=== PATIENT | male | born 1970 | race Caucasian/White ===

== ENCOUNTER → 2018-04-13 12:32 | Outpatient (CLI) | payer BC, SELFPAY ==
--- NOTE | 2018-04-13 | DI.CT.S_ITS ---
PROCEDURE: CT KIDNEY URETER BLADDER (KUB) INDICATIONS: KIDNEY STONES TECHNIQUE: Noncontrast 5 mm thick sections acquired from the diaphragms to the symphysis. 5 mm thick coronal and sagittal reformats were then performed. For radiation dose reduction, the following was used: automated exposure control, adjustment of mA and/or kV according to patient size. COMPARISON: None. FINDINGS: Image quality: Excellent. Lung bases: Lung bases are clear. Heart size is normal. Urinary system: Both kidneys are normal in size. No kidney stones on the right but there is a left-sided 4 by 8mm calculus measuring up to 390 Hounsfield units centrally. No right-sided hydronephrosis or perinephric fat stranding but there is moderate hydronephrosis on the left with prominence of the left renal collecting system contiguously extending into the left ureter, to the bladder level, but without calculus at the bladder margin. Both ureters appear non-dilated throughout their expected courses. Bladder wall thickness is normal; no calcified bladder stones. Other solid organs: Liver is normal in size. Gallbladder appears normal where well visualized but it is largely contracted. Pancreas is normal in contours. Spleen is normal in size. No adrenal nodules. Peritoneum and bowel: Unenhanced bowel loops demonstrate normal wall thickness and caliber. No free fluid or air. Nodes and vessels: No retroperitoneal or mesenteric adenopathy by size criteria. Aorta and inferior vena cava are normal in caliber. Abdominal wall: No ventral hernias. Pelvis: No free pelvic fluid. No inguinal hernias or adenopathy. Bones: No suspicious bony lesions. No vertebral body compression fractures. IMPRESSION: Moderate left hydronephrosis, and no ureteral stone found. The hydroureter is associated with a mild degree of left perinephric and periureteral edema. This indicates likelihood of recent passage of a stone but a calculus within the bladder lumen is not seen. There is a 4 by 8mm 390 Hounsfield units calculus within the central renal collecting system on the left but not the cause of obstruction. Dictated by: Luther Dillon M.D. on 04/13/2018 at 13:34 Approved by: Luther Dillon M.D. on 04/13/2018 at 13:38
== END ==
PROVIDERS: Visit Provider Internal Medicine
DX: N20.0 Calculus of kidney (principal); N13.30 Unspecified hydronephrosis
CPT/HCPCS: 74176

== ENCOUNTER 2018-06-04 11:10 | Emergency (ER) | payer BC, SELFPAY ==
[2018-06-04] VITALS (10 sets, daily range): BP systolic 105–125; BP diastolic 63–83; PULSE 88–104; RESP 8–19; TEMP 36.2; O2SAT 96–100
--- NOTE | 2018-06-04 11:27 | DI.RAD.S_ITS ---
PROCEDURE: XR CHEST 1V INDICATIONS: chest pain TECHNIQUE: One view of the chest was acquired. COMPARISON: None. FINDINGS: Surgical changes and devices: None. Lungs and pleura: There are minimal left basilar hazy and linear opacities. No pleural effusions or pneumothorax. Mediastinum: Mediastinal contours appear normal. Heart size is normal. Bones and chest wall: No suspicious bony lesions. Overlying soft tissues appear unremarkable. IMPRESSION: Minimal left basilar pulmonary opacities favored to represent atelectasis, with aspiration or pneumonia thought less likely. Dictated by: Codey Gaspar M.D. on 06/04/2018 at 13:16 Approved by: Codey Gaspar M.D. on 06/04/2018 at 13:18
[2018-06-04 11:52] LABS: Add Manual Diff / Slide Review NO; Basophils Absolute Auto 0 /uL (0-100); Basophils Percent Auto 0.3 % (0-2); Eosinophils Absolute Auto 200 /uL (0-450); Eosinophils Percent Auto 1.7 % (2-4); Hematocrit 44.2 % (41-53); Hemoglobin 14.8 g/dL (13.5-17.5); Lymphocytes Absolute Auto 3500 /uL (1100-4500); Lymphocytes Percent Auto 37.1 % (25-40); Mean Corpuscular HGB Conc 33.6 % (30-36); Mean Corpuscular Hemoglobin 30.9 PG (26-34); Mean Corpuscular Volume 91.9 fL (80-100); Monocytes Absolute Auto 700 /uL (0-900); Neutrophils Absolute Auto 5100 /uL (1500-7000); Neutrophils Percent Auto 53.9 % (50-75); Platelet Count 174 X10^3/uL (150-400); Red Blood Cell Count 4.81 X10^6/uL (4.5-5.9); White Blood Cell Count 9.5 X10^3/uL (4.5-11.0)
[2018-06-04 11:57] LABS: Prothrombin Time 11.6 SECONDS (10.1-12.7)
[2018-06-04 11:59] LABS: PTT Partial Thromboplastin Tim 28 SECONDS (26.4-36.2)
[2018-06-04 12:00] LABS: Alanine Aminotransferase 91 IU/L (21-72); Albumin 4.4 g/dL (3.5-5.0); Albumin Globulin Ratio 1.3 (1.0-2.8); Alkaline Phosphatase 73 U/L (38-126); Aspartate Aminotransferase 48 IU/L (17-59); Bilirubin Total 0.7 mg/dL (0.2-1.3); Blood Urea Nitrogen 14 mg/dL (9-20); Calcium 9.3 mg/dL (8.4-10.2); Carbon Dioxide 27 mmol/L (22-32); Chloride 100 mmol/L (98-107); Creatine Kinase 69 U/L (55-170); Estimated Glomerular Filt Rate > 60.0 mL/min (>60); Globulin 3.3 g/dL (1.7-4.1); Glucose 123 mg/dL (70-100); HEMOLYSIS < 15 (0-50); Lipase 59 U/L (23-300); Potassium 3.8 mmol/L (3.4-5.1); Sodium 139 mmol/L (137-145); Total Protein 7.7 g/dL (6.3-8.2)
[2018-06-04 12:12] LABS: Troponin I < 0.012 ng/mL (0.01-0.034)
--- NOTE | 2018-06-04 13:24 | ED.CHESTPAIN ---
HPI - Chest Pain <Ester Anderson PA-C - Last Filed: 06/04/18 20:46> General Chief Complaint: Chest Pain Stated Complaint: chest pain extend to back, sob, pain w/ deep breat Time Seen by Provider: 06/04/18 13:24 Source: patient Mode of arrival: ambulatory Limitations: no limitations History of Present Illness HPI narrative: This 48-year-old male comes to ED due to left-sided chest and back area pain. He points to the costal margin as the pain source and states that pain started last night. He states that for several days prior to the onset of pain, he felt congested and slight discomfort deep in the left lung. He states that he has had a little bit of wheezing during that time as well and perhaps slight shortness of breath. He has not had any cough or fever. He denies any upper respiratory symptoms such as nasal congestion, earache, sinus pressure. He has not had body aches. He states that he does not have nausea nor any vomiting. He has not had any pain or swelling in his extremities. He states that pain is worse with lying down, better with sitting up as he feels like it takes pressure off of the area. It is constant to some degree. He denies any pain in the jaw. He has not had dizziness or any other new symptoms with this. He states that he did have reactive airways/asthma previously but does not need to have an inhaler on hand. He has a history of HIV for which he takes antiretrovirals. He states this has been very stable with good counts. He does not have any family history of blood clots or clotting disorders. He states his father did of an [place] in his late 50s or about age 60. No other relevant family history. Related Data Home Medications Medication Instructions Recorded Confirmed pjwavhlbj-fmgzvmthrid-[id number] DF 200 mg PO DAILY 06/04/18 06/04/18 [Complera] trazodone 100 mg PO DAILY 06/04/18 06/04/18 triamcinolone acetonide 0.1 % TOPICAL PRN PRN 06/04/18 06/04/18 Previous Rx's Medication Instructions Recorded albuterol sulfate 2 puff INHALATION Q4-6H PRN #6.7 06/04/18 gram amoxicillin 1,000 mg PO Q8H #42 cap 06/04/18 azithromycin See Rx Instructions .ROUTE 06/04/18 .COMPLEX #6 tab hydrocodone-acetaminophen [[place]] 1 tab PO Q6H PRN #7 tab 06/04/18 Allergies Allergy/AdvReac Type Severity Reaction Status Date / Time No Known Drug Allergies Allergy Verified 06/04/18 11:20 Review of Systems <Ester Anderson PA-C - Last Filed: 06/04/18 20:46> Review of Systems ROS Unobtainable: All systems reviewed & are unremarkable except as noted in HPI and below PFSH <Ester Anderson PA-C - Last Filed: 06/04/18 20:46> Medical History HIV (human immunodeficiency virus infection) (Chronic) Reactive airway disease (Chronic) History of kidney stones (Resolved) Surgical History History of extraction of renal calculus (Resolved) Family History Other CAD (coronary artery disease) Social History Smoking Status: Former smoker Family History Other CAD (coronary artery disease) Social History Smoking Status: Former smoker Comment: Occasional ETOH Exam <Ester Anderson PA-C - Last Filed: 06/04/18 20:46> Narrative Exam Narrative: GENERAL APPEARANCE: Patient sitting comfortably, in no distress. HEAD: No sinus TTP. EYES: PERRL, EOMI. ORAL CAVITY: Normal oropharynx. THROAT: Clear. NECK/THYROID: Neck supple, full range of motion, no cervical lymphadenopathy. CHEST: No tenderness to palpation over the left chest or ribs LUNGS: Clear to auscultation bilaterally, clear to percussion, no cough on exam. HEART: RRR without murmur, nl S1, S2, no S3 or S4. ABDOMEN: Soft, nontender, nondistended, +bowel sounds x4 quadrants EXTREMITIES: No cyanosis, no edema, no calf tenderness Initial Vital Signs Initial Vital Signs: Vital Signs Temperature 97.1 F L 06/04/18 11:20 Pulse Rate 101 H 06/04/18 11:20 Respiratory Rate 18 06/04/18 11:20 Blood Pressure 125/79 06/04/18 11:20 Pulse Oximetry 96 06/04/18 11:20 <Lynsey Guzman DO - Last Filed: 06/05/18 10:50> Initial Vital Signs Initial Vital Signs: Vital Signs Temperature 97.1 F L 06/04/18 11:20 Pulse Rate 101 H 06/04/18 11:20 Respiratory Rate 18 06/04/18 11:20 Blood Pressure 125/79 06/04/18 11:20 Pulse Oximetry 96 06/04/18 11:20 Course <Ester Anderson PA-C - Last Filed: 06/04/18 20:46> Additional Information: Patient's presentation has been somewhat atypical but does appear to have pneumonia. No acute findings otherwise on PE study. Treated with high-dose amoxicillin as well as azithromycin given his history of stable HIV. He has not been on recent antibiotics. He agreed to return if any acutely worsening symptoms and otherwise will follow up with his PCP in a few days. Orders Ordered: Discontinued Medications Albuterol (Ventolin) 2.5 mg INH NOW ONE Stop: 06/04/18 13:46 Last Admin: 06/04/18 13:49 Dose: 2.5 mg Albuterol/Ipratropium (Duoneb) 3 ml INH NOW ONE Stop: 06/04/18 13:46 Last Admin: 06/04/18 13:49 Dose: 3 ml Sodium Chloride (Normal Saline 0.9%) 1,000 mls @ 1,000 mls/hr IV BOLUS ONE Stop: 06/04/18 15:07 Last Infusion: 06/04/18 15:55 Dose: 0 mls/hr Admin: 06/04/18 14:19 Dose: 1,000 mls/hr Vital Signs - 8 hr 06/04/18 13:50 06/04/18 13:52 06/04/18 14:00 Pulse Rate 88 89 98 H Respiratory Rate 8 L 12 18 Blood Pressure [Left Arm] 117/75 110/73 Pulse Oximetry 99 99 06/04/18 15:17 06/04/18 15:51 06/04/18 15:56 Pulse Rate 104 H 101 H Respiratory Rate 15 17 Blood Pressure [Left Arm] 107/63 Pulse Oximetry 97 97 06/04/18 16:07 06/04/18 16:30 06/04/18 17:00 Pulse Rate 100 H 98 H 96 H Respiratory Rate 18 19 18 Blood Pressure [Left Arm] 106/66 105/68 112/83 Pulse Oximetry 100 98 96 <Lynsey Guzman DO - Last Filed: 06/05/18 10:50> Orders Ordered: Discontinued Medications Albuterol (Ventolin) 2.5 mg INH NOW ONE Stop: 06/04/18 13:46 Last Admin: 06/04/18 13:49 Dose: 2.5 mg Albuterol/Ipratropium (Duoneb) 3 ml INH NOW ONE Stop: 06/04/18 13:46 Last Admin: 06/04/18 13:49 Dose: 3 ml Sodium Chloride (Normal Saline 0.9%) 1,000 mls @ 1,000 mls/hr IV BOLUS ONE Stop: 06/04/18 15:07 Last Infusion: 06/04/18 15:55 Dose: 0 mls/hr Admin: 06/04/18 14:19 Dose: 1,000 mls/hr Vital Signs - 8 hr 06/04/18 13:50 06/04/18 13:52 06/04/18 14:00 Pulse Rate 88 89 98 H Respiratory Rate 8 L 12 18 Blood Pressure [Left Arm] 117/75 110/73 Pulse Oximetry 99 99 06/04/18 15:17 06/04/18 15:51 06/04/18 15:56 Pulse Rate 104 H 101 H Respiratory Rate 15 17 Blood Pressure [Left Arm] 107/63 Pulse Oximetry 97 97 06/04/18 16:07 06/04/18 16:30 06/04/18 17:00 Pulse Rate 100 H 98 H 96 H Respiratory Rate 18 19 18 Blood Pressure [Left Arm] 106/66 105/68 112/83 Pulse Oximetry 100 98 96 MDM - Chest Pain <Ester Anderson PA-C - Last Filed: 06/04/18 20:46> Lab Data Attestation: I reviewed the patient's lab results. Result diagrams: 06/04/18 11:35 06/04/18 11:35 Lab Results 06/04/18 06/04/18 06/04/18 Range/Units 11:35 11:35 11:35 WBC 9.5 (4.5-11.0) X10^3/uL RBC 4.81 (4.5-5.9) X10^6/uL Hgb 14.8 (13.5-17.5) g/dL Hct 44.2 (41-53) % MCV 91.9 (80-100) fL MCH 30.9 (26-34) PG MCHC 33.6 (30-36) % RDW 14.0 (11.6-14.8) % Plt Count 174 (150-400) X10^3/uL Neut % (Auto) 53.9 (50-75) % Lymph % (Auto) 37.1 (25-40) % [place] % (Auto) 7.0 (3-14) % Eos % (Auto) 1.7 L (2-4) % Baso % (Auto) 0.3 (0-2) % Neut # (Auto) 5100 (6444-4773) /uL Lymph # (Auto) 3500 (1725-6809) /uL [place] # (Auto) 700 (0-900) /uL Eos # (Auto) 200 (0-450) /uL Baso # (Auto) 0 (0-100) /uL PT 11.6 (10.1-12.7) SECONDS INR 1.0 (0.9-1.3) APTT 28 (26.4-36.2) SECONDS D-Dimer (<230) ng/mL Sodium 139 (137-145) mmol/L Potassium 3.8 (3.4-5.1) mmol/L Chloride 100 (98-107) mmol/L Carbon Dioxide 27 (22-32) mmol/L BUN 14 (9-20) mg/dL Creatinine 1.00 (0.66-1.25) mg/dL Estimated GFR > 60.0 (>60) mL/min BUN/Creatinine Ratio 14.0 (6-22) Glucose 123 H (70-100) mg/dL Calcium 9.3 (8.4-10.2) mg/dL Total Bilirubin 0.7 (0.2-1.3) mg/dL AST 48 (17-59) IU/L ALT 91 H (21-72) IU/L Alkaline Phosphatase 73 (38-126) U/L Total Creatine Kinase 69 (55-170) U/L CK-MB (CK-2) TNP CK-MB (CK-2) Rel Index TNP Troponin I < 0.012 (0.01-0.034) ng/mL Total Protein 7.7 (6.3-8.2) g/dL Albumin 4.4 (3.5-5.0) g/dL Globulin 3.3 (1.7-4.1) g/dL Albumin/Globulin Ratio 1.3 (1.0-2.8) Lipase 59 (23-300) U/L 06/04/18 Range/Units 11:35 WBC (4.5-11.0) X10^3/uL RBC (4.5-5.9) X10^6/uL Hgb (13.5-17.5) g/dL Hct (41-53) % MCV (80-100) fL MCH (26-34) PG MCHC (30-36) % RDW (11.6-14.8) % Plt Count (150-400) X10^3/uL Neut % (Auto) (50-75) % Lymph % (Auto) (25-40) % [place] % (Auto) (3-14) % Eos % (Auto) (2-4) % Baso % (Auto) (0-2) % Neut # (Auto) (1528-2926) /uL Lymph # (Auto) (3786-8443) /uL [place] # (Auto) (0-900) /uL Eos # (Auto) (0-450) /uL Baso # (Auto) (0-100) /uL PT (10.1-12.7) SECONDS INR (0.9-1.3) APTT (26.4-36.2) SECONDS D-Dimer 440 H (<230) ng/mL Sodium (137-145) mmol/L Potassium (3.4-5.1) mmol/L Chloride (98-107) mmol/L Carbon Dioxide (22-32) mmol/L BUN (9-20) mg/dL Creatinine (0.66-1.25) mg/dL Estimated GFR (>60) mL/min BUN/Creatinine Ratio (6-22) Glucose (70-100) mg/dL Calcium (8.4-10.2) mg/dL Total Bilirubin (0.2-1.3) mg/dL AST (17-59) IU/L ALT (21-72) IU/L Alkaline Phosphatase (38-126) U/L Total Creatine Kinase (55-170) U/L CK-MB (CK-2) CK-MB (CK-2) Rel Index Troponin I (0.01-0.034) ng/mL Total Protein (6.3-8.2) g/dL Albumin (3.5-5.0) g/dL Globulin (1.7-4.1) g/dL Albumin/Globulin Ratio (1.0-2.8) Lipase (23-300) U/L Imaging Data Chest x-ray: Radiologist's impression: [address] [address] XRay Report Signed Patient: Harish Bright R#: [id number] : 1970Acct:[id number] Age/Sex: 48 / MDate of Service: 06/04/18 Loc: ED Accession Number: [id number] Procedure: XR chest 1V Ordering Provider: Lynsey Guzman D.O. PROCEDURE: XR CHEST 1V INDICATIONS: chest pain TECHNIQUE: One view of the chest was acquired. COMPARISON: None. FINDINGS: Surgical changes and devices: None. Lungs and pleura: There are minimal left basilar hazy and linear opacities. No pleural effusions or pneumothorax. Mediastinum: Mediastinal contours appear normal. Heart size is normal. Bones and chest wall: No suspicious bony lesions. Overlying soft tissues appear unremarkable. IMPRESSION: Minimal left basilar pulmonary opacities favored to represent atelectasis, with aspiration or pneumonia thought less likely. Dictated by: Codey Gaspar M.D. on 06/04/2018 at 13:16 Approved by: Codey Gaspar M.D. on 06/04/2018 at 13:18 CT scan - chest: Radiologist's impression: [address] [address] [address] Scan Report Signed Patient: Harish Bright JMR#: [id number] : 1970Acct:[id number] Age/Sex: 48 / MDate of Service: 06/04/18 Loc: ED Accession Number: [id number] Procedure: CT angio chest PE protocol Ordering Provider: Ester Anderson P.A-C PROCEDURE: CT ANGIO CHEST PE PROTOCOL INDICATIONS: Left Chest Pain, elevated d dimer TECHNIQUE: After the administration of intravenous contrast, 2 mm thick sections acquired from the pulmonary apices to the posterior costophrenic angles. 3-dimensional maximum intensity projection (MIP) coronal and sagittal reformats were then acquired through the thorax. For radiation dose reduction, the following was used: automated exposure control, adjustment of mA and/or kV according to patient size. COMPARISON: [facility], CR, XR CHEST 1V, 06/04/2018, 11:36. FINDINGS: Image quality: Excellent. Pulmonary arteries: Pulmonary arteries are normal in size, and demonstrate no intraluminal filling defects to suggest central pulmonary embolism. Lungs and pleura: Trace left-sided pleural effusion noted. Patchy airspace opacities noted in the left lung base. Atelectasis noted in the dependent portions of the lungs. No pneumothorax. Central and peripheral airways are patent. Mediastinum: Heart size is normal, without pericardial effusion. No mediastinal or hilar adenopathy. Thoracic aorta is normal in caliber and enhancement. Esophagus is normal in caliber, without hiatal hernia. Bones and chest wall: No suspicious bony lesions. Ribs and thoracic spine appear intact throughout. Thyroid gland is within normal limits. No axillary or supraclavicular adenopathy. Abdomen: Visualized upper abdominal solid organs appear normal in the early arterial phase of enhancement. IMPRESSION: 1. No pulmonary embolus. 2. No aortic dissection. 3. Trace left-sided pleural effusion. 4. Patchy airspace opacities in left lung base which represent atelectasis, aspiration or pneumonia. Dictated by: Meena Saleem MD, PhD on 06/04/2018 at 16:38 Approved by: Meena Saleem MD, PhD on 06/04/2018 at 16:45 ECG Data Attestation: I personally reviewed and interpreted this ECG as follows: (Sinus tachycardia with rate 102, normal axis) Prior ECG tracings: not available for review <Lynsey Guzman, DO - Last Filed: 06/05/18 10:50> Lab Data Lab Results 06/04/18 06/04/18 06/04/18 Range/Units 11:35 11:35 11:35 WBC 9.5 (4.5-11.0) X10^3/uL RBC 4.81 (4.5-5.9) X10^6/uL Hgb 14.8 (13.5-17.5) g/dL Hct 44.2 (41-53) % MCV 91.9 (80-100) fL MCH 30.9 (26-34) PG MCHC 33.6 (30-36) % RDW 14.0 (11.6-14.8) % Plt Count 174 (150-400) X10^3/uL Neut % (Auto) 53.9 (50-75) % Lymph % (Auto) 37.1 (25-40) % [place] % (Auto) 7.0 (3-14) % Eos % (Auto) 1.7 L (2-4) % Baso % (Auto) 0.3 (0-2) % Neut # (Auto) 5100 (4156-1311) /uL Lymph # (Auto) 3500 (2431-0945) /uL [place] # (Auto) 700 (0-900) /uL Eos # (Auto) 200 (0-450) /uL Baso # (Auto) 0 (0-100) /uL PT 11.6 (10.1-12.7) SECONDS INR 1.0 (0.9-1.3) APTT 28 (26.4-36.2) SECONDS D-Dimer (<230) ng/mL Sodium 139 (137-145) mmol/L Potassium 3.8 (3.4-5.1) mmol/L Chloride 100 (98-107) mmol/L Carbon Dioxide 27 (22-32) mmol/L BUN 14 (9-20) mg/dL Creatinine 1.00 (0.66-1.25) mg/dL Estimated GFR > 60.0 (>60) mL/min BUN/Creatinine Ratio 14.0 (6-22) Glucose 123 H (70-100) mg/dL Calcium 9.3 (8.4-10.2) mg/dL Total Bilirubin 0.7 (0.2-1.3) mg/dL AST 48 (17-59) IU/L ALT 91 H (21-72) IU/L Alkaline Phosphatase 73 (38-126) U/L Total Creatine Kinase 69 (55-170) U/L CK-MB (CK-2) TNP CK-MB (CK-2) Rel Index TNP Troponin I < 0.012 (0.01-0.034) ng/mL Total Protein 7.7 (6.3-8.2) g/dL Albumin 4.4 (3.5-5.0) g/dL Globulin 3.3 (1.7-4.1) g/dL Albumin/Globulin Ratio 1.3 (1.0-2.8) Lipase 59 (23-300) U/L 06/04/18 Range/Units 11:35 WBC (4.5-11.0) X10^3/uL RBC (4.5-5.9) X10^6/uL Hgb (13.5-17.5) g/dL Hct (41-53) % MCV (80-100) fL MCH (26-34) PG MCHC (30-36) % RDW (11.6-14.8) % Plt Count (150-400) X10^3/uL Neut % (Auto) (50-75) % Lymph % (Auto) (25-40) % [place] % (Auto) (3-14) % Eos % (Auto) (2-4) % Baso % (Auto) (0-2) % Neut # (Auto) (6263-7583) /uL Lymph # (Auto) (0355-4592) /uL [place] # (Auto) (0-900) /uL Eos # (Auto) (0-450) /uL Baso # (Auto) (0-100) /uL PT (10.1-12.7) SECONDS INR (0.9-1.3) APTT (26.4-36.2) SECONDS D-Dimer 440 H (<230) ng/mL Sodium (137-145) mmol/L Potassium (3.4-5.1) mmol/L Chloride (98-107) mmol/L Carbon Dioxide (22-32) mmol/L BUN (9-20) mg/dL Creatinine (0.66-1.25) mg/dL Estimated GFR (>60) mL/min BUN/Creatinine Ratio (6-22) Glucose (70-100) mg/dL Calcium (8.4-10.2) mg/dL Total Bilirubin (0.2-1.3) mg/dL AST (17-59) IU/L ALT (21-72) IU/L Alkaline Phosphatase (38-126) U/L Total Creatine Kinase (55-170) U/L CK-MB (CK-2) CK-MB (CK-2) Rel Index Troponin I (0.01-0.034) ng/mL Total Protein (6.3-8.2) g/dL Albumin (3.5-5.0) g/dL Globulin (1.7-4.1) g/dL Albumin/Globulin Ratio (1.0-2.8) Lipase (23-300) U/L Discharge Plan Departure Patient Disposition: Home Clinical Impression: Pneumonia Qualifiers: Pneumonia type: due to unspecified organism Laterality: left Lung location: lower lobe of lung Qualified Code(s): J18.1 - Lobar pneumonia, unspecified organism Discharge Date/Time: 06/04/18 17:27 Interventions: ED Discharge Assessment Last Done: 06/04/18 17:26 Instructions: DI for Pneumonia -- Adult, DI for Pulmonary Embolism, DI for Angina, DI for Atypical Chest Pain, DI for Chest Pain, DI for Palpitations, DI for Chest Pain -- Child Activity Restrictions/Additional Instructions: please return as we talked about if you have acutely worsening symptoms, or new symptoms such as high fever. I have prescribed 2 antibiotics for you to cover for atypical bugs as well as the ones that usually cause pneumonia. Please start them both right away. You can continue ibuprofen for your chest discomfort, and use the inhaler as needed for tightness and cough. Also please do the pillow hugging exercise that we talked about every few hours to help keep your lungs inflated and breathing more comfortable. I have prescribed a few hydrocodone/acetaminophen for you to take in the next couple of days if you need them for cough or pain. Please do not drive with them as they could make you sleepy. Please talk with your primary care provider and make sure you schedule for follow-up and recheck early next week. Prescriptions: New amoxicillin 500 mg capsule 1,000 mg PO Q8H Qty: 42 RF: 0 azithromycin 250 mg tablet See Rx Instructions .ROUTE .COMPLEX Qty: 6 RF: 0 hydrocodone-acetaminophen [[place]] 5-325 mg tablet 1 tab PO Q6H PRN (Reason: acute chest pain/pneumonia) Qty: 7 RF: 0 albuterol sulfate 90 mcg/actuation HFA aerosol inhaler 2 puff INHALATION Q4-6H PRN (Reason: shortness of breath) Qty: 6.7 RF: 0 No Action Complera 200-25-300 mg tablet 200 mg PO DAILY RF: 0 trazodone 100 mg tablet 100 mg PO DAILY RF: 0 triamcinolone acetonide 0.1 % ointment 0.1 % Topical PRN PRN (Reason: Dry Skin) RF: 0 Referrals: [facility] [Other] <Lynsey Guzman DO - Last Filed: 06/05/18 10:50> Cosign ED Attending Cosignature Attestation: I was immediately available in the department for consultation. This documentation has been reviewed and I agree with assessment and plan. Supervised by Lynsey Guzman DO
[2018-06-04 13:37] LABS: D Dimer 440 ng/mL (<230)
[2018-06-04] MEDS: ALBUTEROL/IPRATROPIUM 3 ML AMPUL INH (13:49)
[2018-06-04] MEDS: ALBUTEROL 2.5 MG/3 ML NEB (ADULT) INH (13:49)
--- NOTE | 2018-06-04 14:08 | DI.CT.S_ITS ---
PROCEDURE: CT ANGIO CHEST PE PROTOCOL INDICATIONS: Left Chest Pain, elevated d dimer TECHNIQUE: After the administration of intravenous contrast, 2 mm thick sections acquired from the pulmonary apices to the posterior costophrenic angles. 3-dimensional maximum intensity projection (MIP) coronal and sagittal reformats were then acquired through the thorax. For radiation dose reduction, the following was used: automated exposure control, adjustment of mA and/or kV according to patient size. COMPARISON: [facility], CR, XR CHEST 1V, 06/04/2018, 11:36. FINDINGS: Image quality: Excellent. Pulmonary arteries: Pulmonary arteries are normal in size, and demonstrate no intraluminal filling defects to suggest central pulmonary embolism. Lungs and pleura: Trace left-sided pleural effusion noted. Patchy airspace opacities noted in the left lung base. Atelectasis noted in the dependent portions of the lungs. No pneumothorax. Central and peripheral airways are patent. Mediastinum: Heart size is normal, without pericardial effusion. No mediastinal or hilar adenopathy. Thoracic aorta is normal in caliber and enhancement. Esophagus is normal in caliber, without hiatal hernia. Bones and chest wall: No suspicious bony lesions. Ribs and thoracic spine appear intact throughout. Thyroid gland is within normal limits. No axillary or supraclavicular adenopathy. Abdomen: Visualized upper abdominal solid organs appear normal in the early arterial phase of enhancement. IMPRESSION: 1. No pulmonary embolus. 2. No aortic dissection. 3. Trace left-sided pleural effusion. 4. Patchy airspace opacities in left lung base which represent atelectasis, aspiration or pneumonia. Dictated by: Meena Saleem MD, PhD on 06/04/2018 at 16:38 Approved by: Meena Saleem MD, PhD on 06/04/2018 at 16:45
[2018-06-04] MEDS: SODIUM CHLORIDE 0.9% 1,000 ML 1000 ML IV (14:19)
== END 2018-06-04 17:27 | disposition home or self-care (01) ==
PROVIDERS: Emergency Medicine; Emergency Provider Internal Medicine
DX: J18.1 Lobar pneumonia, unspecified organism (principal)
CPT/HCPCS: 36415; 71045; 71275; 80053; 82550; 83690; 84484; 85025; 85379; 85610; 85730; 93005; 93041; 94640; 96360; 96361; 99284; 99285; J7613; Q9967

== ENCOUNTER → 2024-04-26 11:02 | Outpatient (CLI) | payer BC, SELFPAY ==
--- NOTE | 2024-04-26 11:03 | DI.RAD.S_ITS ---
PROCEDURE: XR CHEST 2V INDICATIONS: Cough TECHNIQUE: 2 views of the chest were acquired. COMPARISON: [facility], CR, XR CHEST 1V, 06/04/2018, 11:36. FINDINGS: Surgical changes and devices: None. Lungs and pleura: Lungs are clear. No pleural effusions or pneumothorax. Peribronchial cuffing. Mediastinum: Mediastinal contours are normal. Heart size is normal. Bones and chest wall: No suspicious bony abnormalities. Soft tissues appear unremarkable. IMPRESSION: Peribronchial cuffing, typically indicating infectious or inflammatory bronchitis. Dictated by: Richy Sanchez M.D. on 04/27/2024 at 10:36 Approved by: Richy Sanchez M.D. on 04/27/2024 at 10:36
== END ==
PROVIDERS: Referring Provider Nurse Practitioner Family; Visit Provider Nurse Practitioner Family
DX: R05.9 Cough, unspecified (principal)
CPT/HCPCS: 71046